=== PATIENT | female | born 1960 | race Caucasian/White ===

== ENCOUNTER 2017-02-27 14:22 | Emergency (ER) | payer OTHER ==
[~2017-02-27] VITALS: Ht 154.9 cm; Wt 94.4 kg
[2017-02-27] MEDS ORDERED: FLEXERIL10 MG PO (16:24)
[2017-02-27] MEDS ORDERED: MOTRIN800 MG PO (16:24)
[2017-02-27 16:39] VITALS: BP 189/89
== END 2017-02-27 16:40 | disposition home or self-care (01) ==
LOC: EME 14:22
DX: S29.012A Strain of muscle and tendon of back wall of thorax, initial encounter (principal); M62.830 Muscle spasm of back; Z96.651 Presence of right artificial knee joint
CPT/HCPCS: 72070; 93005; 99281; 99283